=== PATIENT | female | born 1995 | race African-American/Black ===

== ENCOUNTER 2018-03-03 18:23 | Emergency (ER) | payer SELFPAY ==
[~2018-03-03] VITALS: Ht 157.5 cm; Wt 82.5 kg
[2018-03-03 19:26] VITALS: Ht 157.5 cm; Wt 82.5 kg
[2018-03-03 21:05] VITALS: BP 120/71
== END 2018-03-03 21:05 | disposition home or self-care (01) ==
LOC: ED 18:23
DX: J02.9 Acute pharyngitis, unspecified (principal)
CPT/HCPCS: J1885